=== PATIENT | male | born 1995 | race Caucasian/White ===

== ENCOUNTER 2016-10-17 23:10 | Emergency (ER) | payer MEDICAID ==
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
[2016-10-18 00:21] LABS: ACETAMINOPHEN < 3.0 ug/mL
[2016-10-18 00:31] LABS: CHLORIDE,CL 106 mmol/L (98-110); SODIUM,NA 142 mmol/L (136-146)
[2016-10-18 03:24] VITALS: BP 137/77
== END 2016-10-18 03:17 ==
LOC: MW.ED 23:10
DX: R45.851 Suicidal ideations (principal); F43.20 Adjustment disorder, unspecified; Z13.9 Encounter for screening, unspecified
CPT/HCPCS: 36415; 80053; 80305; 85025; 99285; G0480; 99283